=== PATIENT | male | born 1970 | race Caucasian/White ===

== ENCOUNTER 2019-07-12 01:52 | Outpatient (CLI) | payer OTHER, SELFPAY ==
[2019-07-12 11:01] LABS: Hemoglobin A1C 5.7 % (4.5-6.2)
[2019-07-12 11:11] LABS: Calculated LDL 184 mg/dL; Cholesterol 243 mg/dL (<200); HDL Cholesterol 38 mg/dL (40-60); Triglyceride 107 mg/dL (<150)
[2019-07-13 10:04] LABS: PSA, Screening 1.3 ng/mL (0.0-2.5)
== END 2019-07-12 02:12 ==
PROVIDERS: PCP Emergency Medicine; Visit Provider Nurse Practitioner
DX: Z13.220 Encounter for screening for lipoid disorders (principal); Z13.6 Encounter for screening for cardiovascular disorders; Z12.5 Encounter for screening for malignant neoplasm of prostate
CPT/HCPCS: 36415; 80061; 84153; 83036

== ENCOUNTER 2019-08-01 01:22 | Outpatient (CLI) | payer OTHER, SELFPAY ==
[2019-08-01] MEDS: Breeza Beverage 473 ML BTL PO ×2 (13:21→13:22)
--- NOTE | 2019-08-01 14:19 | DI.CT_ITS ---
EXAM: CT ABDOMEN PELVIS W CLINICAL HISTORY: LUQ ABD PAIN, R10.12 TECHNIQUE: COMPARISON: No exams were available for comparison FINDINGS: CT examination of the abdomen pelvis was performed with bolus infusion of 100 cc of Omnipaque 350 an d ingestion dilute barium. Images obtained through the lung bases are unremarkable. The liver and s pleen appear normal. Gallbladder and bile ducts are CT normal. Pancreas appears intact. Abdominal aorta is normal diameter and no major vascular abnormality is seen. Adrenals appear normal bilaterally. 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 There is a small fat containing umbilical hernia. No other significant abdominal wall hernia seen. Appendix is normal. No evidence of diverticulitis or bowel obstruction. Abdominal or pelvic adenopa thy. IMPRESSION: No evidence of acute intra-abdominal process.
[2019-08-01] MEDS: Omnipaque 350 MG/ML 100 ML BTL IJ (14:32)
== END 2019-08-01 01:42 ==
PROVIDERS: PCP Emergency Medicine; Visit Provider Nurse Practitioner
DX: R10.12 Left upper quadrant pain (principal); K42.9 Umbilical hernia without obstruction or gangrene
CPT/HCPCS: 74177; J3490

== ENCOUNTER 2020-07-30 02:59 | Outpatient (CLI) | payer OTHER, SELFPAY ==
[2020-07-30 13:16] LABS: Calculated LDL 180 mg/dL (<100); Cholesterol 247 mg/dL (<200); GGT 79 U/L (15-85); HDL Cholesterol 39 mg/dL (40-60); Triglyceride 141 mg/dL (<150)
== END 2020-07-30 03:19 ==
PROVIDERS: PCP Emergency Medicine; Visit Provider Emergency Medicine
DX: E78.5 Hyperlipidemia, unspecified (principal)
CPT/HCPCS: 36415; 80061; 82977

== ENCOUNTER 2020-08-23 10:38 | Outpatient (CLI) | payer OTHER, SELFPAY ==
--- NOTE | 2020-08-23 09:00 | DI.RAD_ITS ---
EXAM: XR PELVIS AP CLINICAL HISTORY: pain. TECHNIQUE: 2D digital imaging was performed. COMPARISON: No exams were available for comparison FINDINGS: BONES: No acute fracture is present. No bony destructive lesion is seen. JOINTS: No dislocation present. No joint space narrowing is present. SOFT TISSUE: Normal. IMPRESSION: Unremarkable radiographs of the pelvis. DATA REPOSITORY: RADIATION DOSE DELIVERED:
== END 2020-08-23 10:58 ==
PROVIDERS: PCP Emergency Medicine; Referring Provider Emergency Medicine; Visit Provider Physician Assistant Surgical
DX: M25.551 Pain in right hip (principal)
CPT/HCPCS: 72170

== ENCOUNTER 2020-11-21 02:12 | Outpatient (CLI) | payer OTHER, SELFPAY ==
--- NOTE | 2020-11-21 06:30 | DI.MRI_ITS ---
EXAM: MR LOWER JOINT RT WO CLINICAL HISTORY: acute R hip pain,hip abductor tendinitis,m76.899,m25.551, ? bony lesion TECHNIQUE: Multiplanar multisequence MRI of the knee was performed. COMPARISON: CT CT ABDOMEN PELVIS W from 08/01/2019 CR XR PELVIS AP from 08/23/2020 . abdominal-pelvic CT scan performed 08/01/2019 was reviewed. FINDINGS: MARROW:There is no evidence of stress fracture nor avascular necrosis and there is no evidence of hip joint effusion. There are no significant osseous lesions. ARTICULATION/LABRUM: there is no prominent bony excrescence on the anterior femoral neck but there is less than typical concavity at the femoral head-neck junction and there also small anterior subartic ular cyst at this level which may be degenerative versus synovial pits. No ligamentum teres hypertrophy and no abnormal signal at the level the fovea centralis. There is a tiny osteophyte in the inferior articular surface of the femoral head. Mild chondral thinning. Ther e is a a small degenerative subarticular cyst in the superolateral aspect of the acetabulum which kassie sures 2 millimeters and there is surrounding bone edema at this level measuring 1.6 cm AP by 1.2 cm b y 1 cm. Some degenerative signal is seen in the anterior labrum with some fraying. However, there does not a ppear to be fluid interposed between the labrum and osseous glenoid. There is no evidence of paralab ral cyst. SOFT TISSUES: There is no abnormal signal lateral to the greater trochanter to suggest tendonitis/bur sitis. There is no abnormal intraosseous signal at the level of the greater trochanter. Also no abn ormal signal at the level of the lesser trochanter and no evidence of iliopsoas bursitis. There is n o abnormal signal in the quadratus femoris to suggest impingement at this level. No abnormal signal at the hamstrings group attachment at the ischial tuberosity. IMPRESSION: 1. No evidence of stress fracture, avascular necrosis, ominous osseous lesion, nor hip joint effusion 2. There are mild degenerative changes in the right hip joint detailed above. There is also mild irr egularity of the anterior labrum but without a distinct tear (as manifested by invagination of fluid between the labrum the acetabulum). 3. No evidence of tendonitis or bursitis. 3. 4. DATA REPOSITORY:
== END 2020-11-21 02:32 ==
PROVIDERS: PCP Emergency Medicine; Visit Provider Student in an Organized Health Care Education/Training Program
DX: M25.551 Pain in right hip (principal); M76.891 Other specified enthesopathies of right lower limb, excluding foot; M16.11 Unilateral primary osteoarthritis, right hip
CPT/HCPCS: 73721